=== PATIENT | male | born 1955 | race Caucasian/White ===

== ENCOUNTER 2018-04-30 19:02 | Emergency (ER) | payer MEDICARE ==
[~2018-04-30] VITALS: Ht 175.3 cm; Wt 90.9 kg
[2018-04-30 19:34] VITALS: Ht 175.3 cm; Wt 90.9 kg
[2018-04-30] MEDS ORDERED: LISINOPRIL10 MG PO (19:36)
[2018-04-30] MEDS ORDERED: PRILOSEC2.5 MG PO (19:36)
[2018-04-30] MEDS ORDERED: MIRALAX527 GM PO (19:36)
[2018-04-30] MEDS ORDERED: CARAFATE1 G PO (19:36)
[2018-04-30] MEDS ORDERED: PROZAC20 MG PO (19:36)
[2018-04-30] MEDS ORDERED: PRAVACHOL40 MG PO (19:37)
[2018-04-30] MEDS ORDERED: MOBIC7.5 MG PO (19:37)
[2018-04-30] MEDS ORDERED: ZOFRAN4 MG PO ×2 (19:37→23:50)
[2018-04-30] MEDS ORDERED: FOLIC ACID1 MG PO (19:37)
[2018-04-30] MEDS ORDERED: TREXALL7.5 MG (19:38)
[2018-04-30] MEDS ORDERED: GLUCOTROL 5 MG T5 MG PO (19:38)
[2018-04-30 20:03] LABS: APPEARANCE CLEAR (CLEAR); BILIRUBIN NEGATIVE (NEGATIVE); COLOR YELLOW (YELLOW); GLUCOSE NEGATIVE (NEGATIVE); KETONE NEGATIVE (NEGATIVE); NITRITE NEGATIVE (NEGATIVE); PROTEIN NEGATIVE (NEGATIVE); UROBILINOGEN NORMAL (NORMAL)
[2018-04-30 20:35] LABS: BASOPHILS 0.4 % (0-2); EOSINOPHILS 2.1 % (0-7); HEMATOCRIT 36.2 % (42.0-54.0); HEMOGLOBIN 12.6 g/dL (13.5-17.5); IMMATURE GRANULOCYTES 0.2 % (0-5); LYMPHOCYTES 25.3 % (15-50); MCH 32.5 pg (26.0-34.0); MCHC 34.8 g/dL (31.0-37.0); MCV 93.3 fL (80.0-100.0); MONOCYTES 6.2 % (2-11); NEUTROPHILS 65.8 % (40-80); PLATELET COUNT 240 10x3/uL (130-400); RBC 3.88 10x6/uL (4.20-6.10); RDW 12.4 % (11.5-14.5); WBC 9.2 10x3/uL (4.8-10.8)
[2018-04-30 21:00] LABS: ALBUMIN 3.5 g/dL (3.4-5.0); ANION GAP 11.3 mmol/L (8-16); BILIRUBIN - TOTAL 0.23 mg/dL (0.2-1.3); CALCIUM 8.8 mg/dL (8.5-10.1); CARBON DIOXIDE 28.3 mmol/L (21.0-32.0); CREATININE - SERUM 1.5 mg/dL (0.6-1.3); POTASSIUM - SERUM 3.6 mmol/L (3.5-5.1); PROTEIN - SERUM 7.3 g/dL (6.4-8.2)
[2018-05-01 00:04] VITALS: BP 148/77
== END 2018-05-01 00:05 | disposition home or self-care (01) ==
LOC: D.ER 19:02
PROVIDERS: Family Medicine
DX: R11.10 Vomiting, unspecified (principal); K92.0 Hematemesis; E11.9 Type 2 diabetes mellitus without complications; I10 Essential (primary) hypertension; K21.9 Gastro-esophageal reflux disease without esophagitis